=== PATIENT | male | born 1935 | race Caucasian/White ===

== ENCOUNTER 2023-08-19 01:23 | Inpatient (IN) | payer MEDICARE, OTHER ==
[~2023-08-19] VITALS: Ht 165.1 cm; Wt 119.1 kg
[2023-08-19] VITALS (82 sets, daily range): BP systolic 67–150; BP diastolic 30–96; PULSE 89–199; RESP 18–44; TEMP 96.1–99.9; O2SAT 91–100
[2023-08-19] MEDS ORDERED: PANTOPRAZOLE 40 MG/10 ML VIAL INJ IV ONE (01:45)
[2023-08-19] MEDS ORDERED: methylPREDNISolone SOD SUCC 125 MG/2 ML VL IV ONE (01:45)
[2023-08-19] MEDS ORDERED: AMIODARONE BOLUS KIT 100 ML IV ONE (01:45)
[2023-08-19] MEDS ORDERED: NOREPINEPHRINE 8 MG/250ML KIT 250 ML IV ONE (01:46)
[2023-08-19] MEDS: MIDAZOLAM DRIP 50 mg/50mL 50 ML IV SCH ×4 (01:50→17:04)
[2023-08-19] MEDS: NOREPINEPHRINE 8 MG/250ML KIT 250 ML IV SCH ×2 (01:51→06:47)
[2023-08-19] MEDS ORDERED: AMIODARONE 450mg/250ml AE 250 ML IV ONE (01:52)
[2023-08-19] MEDS ORDERED: MIDAZOLAM DRIP 50 mg/50mL 50 ML IV ONE (01:54)
[2023-08-19 01:57] LABS: Basophils # (auto) 0 10 ^3/uL (0-0.2); Basophils % (auto) 0.9 % (0.0-2.0); Eosinophils # (auto) 0 10 ^3/uL (0-0.8); Eosinophils % (auto) 0.1 % (0.0-7.0); Hematocrit 39.2 % (41.0-53.0); Hemoglobin 12.3 g/dL (13.5-17.5); Lymphocytes # (auto) 1.3 10 ^3/uL (0.4-5.4); Lymphocytes % (auto) 43.8 % (10.0-50.0); Mean Corpuscular Hemoglobin 30.5 pg (28.0-32.0); Mean Corpuscular Hgb Conc. 31.5 g/dL (32.0-36.0); Mean Corpuscular Volume 96.8 fL (80.0-100.0); Monocytes # (auto) 0.1 10 ^3/uL (0-1.3); Neutrophils # (auto) 1.5 10 ^3/uL (1.6-8.6); Neutrophils % (auto) 52.2 % (37.0-80.0); Nucleated Red Blood Cells % 0.5 %; Red Blood Cells 4.05 10^6/uL (4.5-5.90); White Blood Cell 2.9 10^3/uL (4.4-10.8)
[2023-08-19] MEDS ORDERED: cefTRIAXone 1GM/50ML D5W 50 ML IV ONE (02:00)
[2023-08-19] MEDS ORDERED: AMIODARONE 450mg/250ml AE 250 ML IV SCH (02:00)
[2023-08-19 02:13] LABS: Alanine Aminotransferase 33 U/L (7-40); Albumin 3.4 g/dL (3.2-4.8); Alkaline Phosphatase 175 U/L (46-116); Anion Gap 16 (5-15); Aspartate Aminotransferase 46 U/L (13-40); BUN/Creatinine Ratio 12.2 (10.0-20.0); Blood Urea Nitrogen 58 mg/dL (9-23); Calcium 8.5 mg/dL (8.7-10.4); Carbon Dioxide 22 mmol/L (20-30); Chloride 101 mmol/L (98-107); Glucose 176 mg/dL (74-106); INR 1.48 (0.9-1.15); Magnesium 2.1 mg/dL (1.6-2.6); Partial Thromboplastin Time 32.8 SEC (24.5-34.5); Potassium 5.2 mmol/L (3.5-5.1); Prothrombin Time 15.1 sec (9.3-11.8); Sodium 139 mmol/L (136-145)
[2023-08-19 02:14] LABS: Bilirubin, Total 0.9 mg/dL (0.2-1.0); Total Protein 6.4 g/dL (5.7-8.2)
[2023-08-19 02:52] LABS: Lactic Acid w/Reflex 8.7 mmol/L (0.4-2.0)
[2023-08-19 02:57] LABS: Urine Bacteria NONE SEEN /hpf (None Seen); Urine Blood 1+ /uL (Negative); Urine Budding Yeast FEW /hpf (None Seen); Urine Clarity Clear (Clear); Urine Color Yellow (Yellow); Urine Protein, UAD Negative (Negative); Urine Specific Gravity 1.012 (1.001-1.035); Urine Urobilinogen Normal (Negative); Urine WBC 8 /hpf (0 - 3); Urine pH 5.5 (5.0-8.0)
[2023-08-19] MEDS ORDERED: SODIUM CHLORIDE 0.9% 1,000 ML IV ONE (03:00)
[2023-08-19] MEDS ORDERED: VANCOMYCIN 1GM/200ML 200 ML IV ONE (03:00)
[2023-08-19] MEDS ORDERED: SODIUM BICARBONATE 8.4 % INJ 50ML VIAL IV ONE ×3 (03:15→21:30)
[2023-08-19] MEDS ORDERED: fentaNYL Drip 2500mCg/250mlNS 250 ML IV ONE (03:17)
[2023-08-19] MEDS: fentaNYL Drip 2500mCg/250mlNS 250 ML IV SCH (03:20)
[2023-08-19 03:38] LABS: Base Excess -12.1 mmol/L (-2.0-2.0)
[2023-08-19] MEDS ORDERED: PANTOPRAZOLE 40mg/50ML NS AE 50 ML IV ONE (03:45)
[2023-08-19] MEDS ORDERED: SODIUM CHLORIDE 0.9% 1,000 ML IV SCH (04:15)
[2023-08-19] MEDS ORDERED: NITROGLYCERIN 0.4 MG SL TAB SL PRN (04:15)
[2023-08-19] MEDS ORDERED: ONDANSETRON HCL 4 MG/2 ML VIAL IV PRN (04:15)
[2023-08-19] MEDS ORDERED: MORPHINE SULFATE INJ 2 MG/ml SYRG IV PRN (04:15)
[2023-08-19] MEDS ORDERED: ACETAMINOPHEN 325 MG TAB PO PRN (04:15)
[2023-08-19 04:33] LABS: Base Excess -8.9 mmol/L (-2.0-2.0)
[2023-08-19 05:16] LABS: Hematocrit 37.5 % (41.0-53.0); Hemoglobin 12.1 g/dL (13.5-17.5)
[2023-08-19] MEDS ORDERED: VANCOMYCIN PER PHARMACY 0 MG IV SCH (06:45)
[2023-08-19] MEDS ORDERED: CALCIUM GLUC 1,000mg/50ml-NS 50 ML IV ONE (08:00)
[2023-08-19] MEDS ORDERED: DEXTROSE (50%) 50ML SYRG IV ONE (08:00)
[2023-08-19] MEDS: VASOPRESSIN 20 UNITS in SODIUM CHL 0.9% 99 ML IV SCH ×2 (08:00→17:44)
[2023-08-19] MEDS ORDERED: InsuLIN REG 1unit/0.01ml Soln (100units/ml) IV ONE (08:00)
[2023-08-19] MEDS ORDERED: ALBUTEROL SULF 2.5 MG/0.5ML(0.5%) NEB SOLN NEB ONE (08:00)
[2023-08-19] MEDS ORDERED: EPINEPHrine HCL 250 ML IV SCH (08:00)
[2023-08-19] MEDS ORDERED: PHENYLEPHRINE IV 250 ML IV SCH (08:00)
[2023-08-19] MEDS ORDERED: SODIUM ZIRCONIUM CYCL 10 GM PAK PO ONE (08:00)
[2023-08-19] MEDS ORDERED: VASOPRESSIN 20 UNIT/ML ONE (08:43)
[2023-08-19 09:29] LABS: Chloride 105 mmol/L (98-107); Potassium 4.9 mmol/L (3.5-5.1); Sodium 142 mmol/L (136-145)
[2023-08-19 09:30] LABS: Anion Gap 18 (5-15); Calcium 8.2 mg/dL (8.5-10.1); Carbon Dioxide 19 mmol/L (20-30)
[2023-08-19 09:35] LABS: BUN/Creatinine Ratio 12.8 (10.0-20.0); Blood Urea Nitrogen 61 mg/dL (9-23); Glucose 118 mg/dL (74-106)
[2023-08-19] MEDS ORDERED: PANTOPRAZOLE 40 MG/10 ML VIAL INJ IV SCH (10:00)
[2023-08-19] MEDS: EPINEPHrine HCL INJECTION 16 MG in D5W 5% 234 ML IV SCH ×2 (10:15→15:45)
[2023-08-19] MEDS: SODIUM BICARBONATE 50ML VIAL 150 ML in D5W 5% 1,000 ML IV SCH ×3 (11:18→21:30)
[2023-08-19] MEDS: NOREPINEPHRINE BITARTRATE 32 MG in SODIUM CHL 0.9% 218 ML IV SCH (11:18)
[2023-08-19] MEDS: PHENYLEPHRINE INJ 80 MG in SODIUM CHL 0.9% 242 ML IV SCH ×2 (11:22→20:00)
[2023-08-19 12:08] LABS: Triglycerides 72 mg/dL (< 150)
[2023-08-19 12:09] LABS: LDL Cholesterol 59 mg/dL (< 100)
[2023-08-19 12:10] LABS: Amphetamine Screen, Urine Neg (NEGATIVE)
[2023-08-19 12:10] LABS: Cholesterol 103 mg/dL (< 200); HDL Cholesterol 29 mg/dL (40-59)
[2023-08-19 12:11] LABS: Barbiturate Scree,Urine Neg (NEGATIVE); Benzodiazephine Screen, Urine Neg (NEGATIVE); Cannabinoid Screen, Urine Neg (NEGATIVE); Cocaine Screen, Urine Neg (NEGATIVE); Opiate Scree,Urine Neg (NEGATIVE); Phencyclidine Screen, Urine Neg (NEGATIVE)
[2023-08-19 12:41] LABS: COVID19 ANTIGEN SOFIA FIA NEGATIVE (NEGATIVE); Rapid Influenza A Negative (Negative); Rapid Influenza B Negative (Negative)
[2023-08-19] MEDS: AMIODARONE 450mg/250ml AE 250 ML IV SCH ×2 (13:00→17:04)
[2023-08-19 13:16] LABS: Base Excess -13.8 mmol/L (-2.0-2.0)
[2023-08-19] MEDS: OCTREOTIDE ACETATE 500 MCG in SODIUM CHL 0.9% 99 ML IV SCH ×2 (13:21→22:18)
[2023-08-19 13:22] LABS: Alanine Aminotransferase 37 U/L (7-40); Albumin 3.1 g/dL (3.2-4.8); Alkaline Phosphatase 159 U/L (46-116); Anion Gap 19 (5-15); Aspartate Aminotransferase 59 U/L (13-40); BUN/Creatinine Ratio 12.8 (10.0-20.0); Bilirubin, Total 0.8 mg/dL (0.2-1.0); Blood Urea Nitrogen 61 mg/dL (9-23); Calcium 8.1 mg/dL (8.5-10.1); Carbon Dioxide 17 mmol/L (20-30); Chloride 106 mmol/L (98-107); Glucose 118 mg/dL (74-106); Phosphorus 8.5 mg/dL (2.4-5.1); Potassium 4.9 mmol/L (3.5-5.1); Sodium 142 mmol/L (136-145); Total Protein 5.8 g/dL (5.7-8.2)
[2023-08-19] MEDS: PANTOPRAZOLE 40mg/50ML NS AE 50 ML IV SCH ×4 (13:22→22:17)
[2023-08-19 13:56] LABS: Lactic Acid w/Reflex 9.5 mmol/L (0.4-2.0)
[2023-08-19 15:04] LABS: Base Excess -12.8 mmol/L (-2.0-2.0)
[2023-08-19 15:33] LABS: Hematocrit 35.1 % (41.0-53.0); Hemoglobin 10.9 g/dL (13.5-17.5)
[2023-08-19] MEDS ORDERED: DOPamine 1600MCG/ML D5W 250 ML IV SCH (16:00)
[2023-08-19] MEDS: MEROPENEM 1GM IVPB 50 ML IV SCH ×2 (16:03→22:18)
[2023-08-19 17:05] LABS: Gastric Occult Blood Positive (Negative); Gastric Occult Blood pH 7+
[2023-08-19 20:21] LABS: Base Excess -10.7 mmol/L (-2.0-2.0)
[2023-08-19] MEDS ORDERED: DOPamine 3200MCG/ML 250 ML IV SCH (20:45)
[2023-08-19] MEDS ORDERED: DOPamine 1600MCG/ML D5W 250 ML IV ONE (21:54)
[2023-08-19] MEDS: MUPIROCIN 2% OINT 15gm or 22gm FOR MRSA NARES EACHNOSTRI SCH (22:19)
[2023-08-20] VITALS (47 sets, daily range): BP systolic 81–137; BP diastolic 32–94; PULSE 62–113; RESP 14–44; TEMP 98.6–99.1; O2SAT 88–100
[2023-08-20] MEDS: DOPamine 1600MCG/ML D5W 250 ML IV SCH ×4 (00:15→09:17)
[2023-08-20] MEDS ORDERED: AMIODARONE 450mg/250ml AE 250 ML IV ONE (00:17)
[2023-08-20] MEDS ORDERED: PHENYLEPHRINE HCL 10 MG/ML VL ONE (00:48)
[2023-08-20] MEDS ORDERED: PHENYLEPHRINE IV 250 ML IV ONE (00:48)
[2023-08-20] MEDS ORDERED: cefTRIAXone 1GM/50ML D5W 50 ML IV SCH (02:00)
[2023-08-20] MEDS: NOREPINEPHRINE BITARTRATE 32 MG in SODIUM CHL 0.9% 218 ML IV SCH (02:36)
[2023-08-20] MEDS: PHENYLEPHRINE INJ 80 MG in SODIUM CHL 0.9% 242 ML IV SCH ×2 (02:36→09:32)
[2023-08-20] MEDS: fentaNYL Drip 2500mCg/250mlNS 250 ML IV SCH (03:15)
[2023-08-20] MEDS: PANTOPRAZOLE 40mg/50ML NS AE 50 ML IV SCH ×2 (03:53→09:12)
[2023-08-20 03:57] LABS: Hemoglobin 10.1 g/dL (13.5-17.5); Mean Corpuscular Hgb Conc. 33.1 g/dL (32.0-36.0)
[2023-08-20 04:00] LABS: Hematocrit 30.5 % (41.0-53.0); Mean Corpuscular Volume 93.9 fL (80.0-100.0); Red Blood Cells 3.24 10^6/uL (4.5-5.90)
[2023-08-20 04:16] LABS: Alanine Aminotransferase 48 U/L (7-40); Alkaline Phosphatase 121 U/L (46-116); Anion Gap 13 (5-15); BUN/Creatinine Ratio 13.6 (10.0-20.0); Blood Urea Nitrogen 59 mg/dL (9-23); Calcium 6.3 mg/dL (8.7-10.4); Carbon Dioxide 24 mmol/L (20-30); Chloride 102 mmol/L (98-107); Potassium 4.6 mmol/L (3.5-5.1); Sodium 139 mmol/L (136-145)
[2023-08-20 04:17] LABS: Albumin 2.5 g/dL (3.2-4.8); Aspartate Aminotransferase 112 U/L (13-40); Bilirubin, Total 1.2 mg/dL (0.2-1.0); Total Protein 4.8 g/dL (5.7-8.2)
[2023-08-20 04:19] LABS: Glucose 218 mg/dL (74-106)
[2023-08-20 04:25] LABS: Lactic Acid w/Reflex 5.2 mmol/L (0.4-2.0)
[2023-08-20 04:26] LABS: Basophils % (manual) 0 (0.0-2.0); Blast Cells 0; Eosinophils % (manual) 0 (0-7); Promyelocytes % 0; Reactive Lymphocytes 0
[2023-08-20 04:56] LABS: Band Neutrophils % (manual) 34; Lymphocytes % (manual) 20 (10.0-50.0); Metamyelocytes % 10; Myelocytes % 8
[2023-08-20 04:57] LABS: Monocytes % (manual) 8 (0-12); Ovalocytes FEW; Platelet Estimate Decreased
[2023-08-20 04:58] LABS: Anisocytosis Slight
[2023-08-20] MEDS: MEROPENEM 1GM IVPB 50 ML IV SCH (05:17)
[2023-08-20] MEDS: SODIUM BICARBONATE 50ML VIAL 150 ML in D5W 5% 1,000 ML IV SCH (05:18)
[2023-08-20] MEDS: VASOPRESSIN 20 UNITS in SODIUM CHL 0.9% 99 ML IV SCH (05:19)
[2023-08-20] MEDS ORDERED: AMIODARONE 450mg/250ml AE 250 ML IV SCH (06:15)
[2023-08-20 07:44] LABS: Base Excess -6.3 mmol/L (-2.0-2.0)
[2023-08-20] MEDS: OCTREOTIDE ACETATE 500 MCG in SODIUM CHL 0.9% 99 ML IV SCH (08:17)
[2023-08-20] MEDS ORDERED: VANCOMYCIN 1GM/200ML 200 ML IV ONE (08:30)
[2023-08-20] MEDS ORDERED: MEROPENEM 1GM IVPB 50 ML IV SCH (10:00)
[2023-08-20] MEDS: MUPIROCIN 2% OINT 15gm or 22gm FOR MRSA NARES EACHNOSTRI SCH (11:38)
[2023-08-20] MEDS: EPINEPHrine HCL INJECTION 16 MG in D5W 5% 234 ML IV SCH (11:40)
[2023-08-20] MEDS ORDERED: MORPHINE SULFATE INJ 2 MG/ml SYRG IV PRN (13:15)
[2023-08-20] MEDS ORDERED: LORazepam 2MG/ML-1ML VIAL IV PRN (13:15)
== END 2023-08-20 19:31 | DRG 871 ==
LOC: EDBD 01:23 → ER 01:23 → TELE 04:02 → ICU WEST 05:55
PROVIDERS: ADMIT Internal Medicine Pulmonary Disease; ATTEND Internal Medicine Pulmonary Disease
PROC: 5A1945Z Respiratory Ventilation, 24-96 Consecutive Hours (ICD-10-PCS; principal; 2023-08-19)
PROC: 0BH17EZ Insertion of Endotracheal Airway into Trachea, Via Natural or Artificial Opening (ICD-10-PCS; 2023-08-19)
PROC: 5A12012 Performance of Cardiac Output, Single, Manual (ICD-10-PCS; 2023-08-19)
DX: A41.9 Sepsis, unspecified organism (principal); I21.A1 Myocardial infarction type 2; R65.21 Severe sepsis with septic shock; I50.43 Acute on chronic combined systolic (congestive) and diastolic (congestive) heart failure; J18.9 Pneumonia, unspecified organism; J96.21 Acute and chronic respiratory failure with hypoxia; N17.0 Acute kidney failure with tubular necrosis; K92.2 Gastrointestinal hemorrhage, unspecified; E87.20 Acidosis, unspecified; I48.92 Unspecified atrial flutter; J44.0 Chronic obstructive pulmonary disease with (acute) lower respiratory infection; Z68.41 Body mass index [BMI] 40.0-44.9, adult; Z20.822 Contact with and (suspected) exposure to COVID-19; I48.0 Paroxysmal atrial fibrillation; I46.9 Cardiac arrest, cause unspecified; E87.5 Hyperkalemia; I27.20 Pulmonary hypertension, unspecified; I11.0 Hypertensive heart disease with heart failure; E66.9 Obesity, unspecified; Z82.49 Family history of ischemic heart disease and other diseases of the circulatory system; Z86.73 Personal history of transient ischemic attack (TIA), and cerebral infarction without residual deficits; Z95.1 Presence of aortocoronary bypass graft; R57.1 Hypovolemic shock
CPT/HCPCS: 31500; 36415; 36556; 36600; 71045; 80048; 80053; 80061; 80202; 80307; 81001; 82140; 82271; 82805; 82962; 83036; 83605; 83735; 83880; 84100; 84443; 84484; 85007; 85014; 85018; 85025; 85027; 85379; 85610; 85730; 86850; 86900; 86901; 87040; 87070; 87077; 87081; 87086; 87088; 87186; 87205; 87426; 87804; 93005; 93306; 93970; 94002; 94003; 96365; 96366; 96367; 96368; 96375; 99291; C9113; G0378; J0171; J1265; J1815; J2185; J2250; J7060